=== PATIENT | male | born 1960 | race Caucasian/White ===

== ENCOUNTER 2017-11-09 10:48 | Inpatient (IN) | payer SELFPAY ==
[~2017-11-09] VITALS: Ht 180.3 cm; Wt 79.2 kg
[2017-11-09] MEDS ORDERED: SODIUM CHLORIDE 0.9% 1000ML 1,000 ML IV STA (11:06)
[2017-11-09 11:25] LABS: BASOPHILS # (AUTO) 0.1 (0.0-0.1); BASOPHILS % 0.5 % (0.0-1.0); EOSINOPHILS # (AUTO) 0.1 (0.0-0.4); EOSINOPHILS % 0.3 % (0.0-6.0); HEMOGLOBIN 11.9 g/dL (14.0-18.0); LYMPHOCYTES # (AUTO) 2.7 (1.0-3.2); LYMPHOCYTES % 14.8 % (18.0-39.1); MEAN CORPUSCULAR HEMOGLOBIN 27.5 pg (28-32); MONOCYTES # (AUTO) 1.1 (0.2-0.8); MONOCYTES % 6.1 % (4.4-11.3); NEUTROPHILS # (AUTO) 14.4 (2.1-6.9); NEUTROPHILS % 77.4 % (38.7-80.0); PLATELET COUNT 489 x10e3/uL (140-360); RED BLOOD COUNT 4.32 x10e6/uL (4.3-5.7); RED CELL DISTRIBUTION WIDTH 13.1 % (11.7-14.4)
[2017-11-09 11:30] LABS: CLARITY,URINE SL CLOUDY (CLEAR); COLOR,URINE YELLOW (YELLOW); LEUKOCYTE ESTERASE ,URINE NEGATIVE (NEGATIVE); NITRITE,URINE NEGATIVE (NEGATIVE); PROTEIN,URINE DIPSTICK NEGATIVE (NEGATIVE)
[2017-11-09 11:31] LABS: BILIRUBIN,URINE NEGATIVE (NEGATIVE); KETONES,URINE TRACE (NEGATIVE); URINE UROBILINOGEN 0.2 mg/dL (0.2 - 1)
--- NOTE | 2017-11-09 11:35 | Diagnostic Imaging Report ---
EXAMINATION: CHEST SINGLE (PORTABLE) INDICATION: \S\ABD PAIN COMPARISON: None FINDINGS: AP view TUBES and LINES: None. LUNGS: Lungs are well inflated. Lungs are clear. There is no evidence of pneumonia or pulmonary edema. PLEURA: No pleural effusion or pneumothorax. HEART AND MEDIASTINUM: The cardiomediastinal silhouette is unremarkable. BONES AND SOFT TISSUES: No acute osseous lesion. Soft tissues are unremarkable. UPPER ABDOMEN: No free air under the diaphragm. IMPRESSION: No acute thoracic abnormality. Signed by: Dr. Blaise Hernandez M.D. on 11/09/2017 11:32 AM
[2017-11-09 11:44] LABS: BACTERIA,URINE RARE /HPF
[2017-11-09] MEDS ORDERED: ALBUTEROL/IPRATROPIUM 3 ML NEB NEB ONE (11:45)
[2017-11-09 11:53] LABS: ALANINE AMINOTRANSFERASE 22 IU/L (0-55); ALBUMIN 2.7 g/dL (3.5-5.0); ALBUMIN/GLOBULIN RATIO 0.6 (0.8-2.0); ALKALINE PHOSPHATASE 100 IU/L (40-150); ANION GAP 13.9 mmol/L (8-16); BLOOD UREA NITROGEN 11 mg/dL (7-26); BUN/CREATININE RATIO 15 (6-25); CALCIUM 9.1 mg/dL (8.4-10.2); CARBON DIOXIDE 23 mmol/L (22-29); CHLORIDE 99 mmol/L (98-107); CREATINE KINASE 38 IU/L (30-200); CREATININE, SERUM 0.72 mg/dL (0.72-1.25); EST GLOMERULAR FILTRATION RATE > 60 ML/MIN (60-); GLUCOSE 105 mg/dL (74-118); LIPASE 25 U/L (8-78); POTASSIUM 3.9 mmol/L (3.5-5.1); SODIUM 132 mmol/L (136-145)
[2017-11-09] MEDS ORDERED: MORPHINE SULFATE 2 MG/ML SYR IV STA (12:48)
--- NOTE | 2017-11-09 13:11 | Diagnostic Imaging Report ---
EXAM: CT Abdomen and Pelvis WITH contrast INDICATION: \S\acute abd pain. Flank pain. Diarrhea. 3-4 weeks off and on. COMPARISON: None. TECHNIQUE: Abdomen and pelvis were scanned utilizing a multidetector helical scanner from the lung base to the pubic symphysis after administration of IV contrast. Coronal and sagittal reformations were obtained. Routine protocol was performed. Scan was performed when during portal venous phase. IV CONTRAST: 100 mL of Isovue 370 ORAL CONTRAST: Water COMPLICATIONS: None RADIATION DOSE: Total DLP: 6. Fevers and chills. mGy*cm Estimated effective dose: (DLP x 0.015 x size factor) mSv CTDIvol has been reviewed. It is below the limits set by the Radiation Protocol Committee (RPC). FINDINGS: LINES and TUBES: None. LOWER THORAX: Unremarkable HEPATOBILIARY: No focal hepatic lesions. No biliary ductal dilation. GALLBLADDER: No radio-opaque stones or sludge. No wall thickening. SPLEEN: No splenomegaly. PANCREAS: No focal masses or ductal dilatation. ADRENALS: No adrenal nodules KIDNEYS/URETERS: Kidneys enhance symmetrically. No hydronephrosis. No cystic or solid mass lesions. No stones. GI TRACT: No abnormal distention, wall thickening, or evidence of bowel obstruction. Fluid filling the ascending colon and the hepatic flexure of the colon. Descending colon and transverse colon and sigmoid colon are relatively decompressed without wall thickening. Appendix is normal. Small sliding hiatal hernia with significant diffuse wall thickening questionable intraluminal mass.. PELVIC ORGANS/BLADDER: Unremarkable. LYMPH NODES: No lymphadenopathy. VESSELS: Unremarkable. PERITONEUM / RETROPERITONEUM: No free air or fluid. BONES: Unremarkable. SOFT TISSUES: Unremarkable. IMPRESSION: 1. Small sliding hiatal hernia with significant wall thickening. Questionable intraluminal mass Recommend endoscopy. 2. Fluid-filled ascending colon and hepatic flexure of the colon. This is nonspecific but can be seen with diarrhea. Remaining colon is decompressed with no evidence of inflammation. Signed by: Dr. Blaise Hernandez M.D. on 11/09/2017 1:07 PM
[2017-11-09] MEDS ORDERED: SODIUM CHLORIDE 0.9% 50ML 50 ML ONE (14:18)
[2017-11-09] MEDS ORDERED: IOPAMIDOL 370 MG/ML 200 ML INFUS..BTL INJ ONE (14:19)
[2017-11-09] MEDS ORDERED: PIPER-TAZ 3.375 GM 50 ML IV STA (14:31)
[2017-11-09] MEDS ORDERED: ONDANSETRON HCL INJ 2 MG/ML VIAL IV PRN (14:45)
[2017-11-09] MEDS: MORPHINE SULFATE 2 MG/ML SYR IV PRN ×2 (15:08→19:30)
--- OUTSIDE RECORDS SUMMARY | 2017-11-09 15:21 | XMS REPORT ---
Author Author [facility] Address Unknown Phone Unavailable Care Team Providers Care Vice President Client Services Name Role Phone MARI HARMON Unavailable Unavailable Problems This patient has no known problems. Allergies, Adverse Reactions, Alerts This patient has no known allergies or adverse reactions. Medications This patient has no known medications. Results Test Description Test Time Test Comments Text Results Atomic Results Result Comments CHEST SINGLE (PORTABLE) [place] [address] Patient Name: VERONICA ARCEO MR #: [id number] : 1960 Age/Sex: 56/M Req #: [id number] Adm Physician: Ordered by: SHELLY LOPEZ INSTRUCTIONAL SERVICES SPECIALIST Report #: [id number] Location: ER Room/Bed: Procedure: [id number] DX/CHEST SINGLE (PORTABLE) Exam Date: 11/09/17 Exam Time: 1120 REPORT STATUS: Signed EXAMINATION: CHEST SINGLE (PORTABLE) INDICATION: S ABD PAIN COMPARISON: None FINDINGS: AP view TUBES and LINES: None. LUNGS: Lungs are well inflated. Lungs are clear. There is no evidence of pneumonia or pulmonary edema. PLEURA: No pleural effusion or pneumothorax. HEART AND MEDIASTINUM: The cardiomediastinal silhouette is unremarkable. BONES AND SOFT TISSUES: No acute osseous lesion. Soft tissues are unremarkable. UPPER ABDOMEN: No free air under the diaphragm. IMPRESSION: No acute thoracic abnormality. Signed by: Dr. Alexander Hernandez M.D. on 11/09/2017 11:32 AM Dictated By: ALEXANDER HERNANDEZ MD [id number] Transcribed By: MICHAEL on 11/09/17 113 COPY TO: SHELLY LOPEZ NP CT ABDOMEN/PELVIS W [place] [address] Patient Name: VERONICA ARCEO MR #: [id number] : 1960 Age/Sex: 56/M Req #: [id number] Adm Physician: Ordered by: SHELLY LOPEZ NP Report #: [id number] Location: ER Room/Bed: Procedure: [id number] CT/CT ABDOMEN/PELVIS W Exam Date: 11/09/17 Exam Time: 1233 REPORT STATUS: Signed EXAM: CT Abdomen and Pelvis WITH contrast INDICATION: S acute abd pain. Flank pain. Diarrhea. 3-4 weeks off and on. COMPARISON: None. TECHNIQUE: Abdomen and pelvis were scanned utilizing a multidetector helical scanner from the lung base to the pubic symphysis after administration of IV contrast. Coronal and sagittal reformations were obtained. Routine protocol was performed. Scan was performed when during portal venous phase. IV CONTRAST: 100 mL of Isovue 370 ORAL CONTRAST: Water COMPLICATIONS: None RADIATION DOSE: Total DLP: 6. Fevers and chills. mGy*cm Estimated effective dose: (DLP x 0.015 x size factor) mSv CTDIvol has been reviewed. It is below the limits set by the Radiation Protocol Committee (RPC). FINDINGS: LINES and TUBES: None. LOWER THORAX: Unremarkable HEPATOBILIARY: No focal hepatic lesions. No biliary ductal dilation. GALLBLADDER: No radio-opaque stones or sludge. No wall thickening. SPLEEN: No splenomegaly. PANCREAS: No focal masses or ductal dilatation. ADRENALS: No adrenal nodules KIDNEYS/URETERS : Kidneys enhance symmetrically. No hydronephrosis. No cystic or solid mass lesions. No stones. GI TRACT: No abnormal distention, wall thickening, or evidence of bowel obstruction. Fluid filling the ascending colon and the hepatic flexure of the colon. Descending colon and transverse colon and sigmoid colon are relatively decompressed without wall thickening. Appendix is normal. Small sliding hiatal hernia with significant diffuse wall thickening questionable intraluminal mass.. PELVIC ORGANS/BLADDER: Unremarkable. LYMPH NODES: No lymphadenopathy. VESSELS: Unremarkable. PERITONEUM / RETROPERITONEUM: No free air or fluid. BONES: Unremarkable. SOFT TISSUES: Unremarkable. IMPRESSION: 1. Small sliding hiatal hernia with significant wall thickening. Questionable intraluminal mass Recommend endoscopy. 2. Fluid-filled ascending colon and hepatic flexure of the colon. This is nonspecific but can be seen with diarrhea. Remaining colon is decompressed with no evidence of inflammation. Signed by: Dr. Alexander Hernandez M.D. on 11/09/2017 1:07 PM Dictated By: ALEXANDER HERNANDEZ MD 1300 Transcribed By: MICHAEL on 11/09/17 130 COPY TO: SHELLY LOPEZ NP
[2017-11-09 17:00] VITALS: BP 138/94
[2017-11-09 17:33] VITALS: BP 138/94
[2017-11-09 20:00] VITALS: BP 115/79
[2017-11-09 20:38] VITALS: BP 115/79
[2017-11-10] VITALS (8 sets, daily range): BP systolic 111–125; BP diastolic 65–77
[2017-11-10] MEDS: MORPHINE SULFATE 2 MG/ML SYR IV PRN ×6 (00:30→22:00)
[2017-11-10] MEDS ORDERED: PANTOPRAZOLE 40 MG 10ML VIAL IV STA (01:56)
[2017-11-10] MEDS ORDERED: PANTOPRAZOLE INJ 40 MG in SODIUM CHLORIDE 0.9% 50ML 50 ML IV SCH (02:00)
[2017-11-10] MEDS ORDERED: SODIUM CHLORIDE 0.9% 250ML 250 ML ONE (06:17)
[2017-11-10 06:27] LABS: BASOPHILS # (AUTO) 0.1 (0.0-0.1); BASOPHILS % 0.4 % (0.0-1.0); EOSINOPHILS # (AUTO) 0.2 (0.0-0.4); HEMATOCRIT 34.5 % (38.2-49.6); HEMOGLOBIN 11.8 g/dL (14.0-18.0); LYMPHOCYTES # (AUTO) 3.2 (1.0-3.2); MEAN CORPUSCULAR HEMOGLOBIN 27.8 pg (28-32); MEAN CORPUSCULAR HGB CONC 34.2 g/dL (31-35); MEAN CORPUSCULAR VOLUME 81.2 fL (81-99); MONOCYTES # (AUTO) 1.5 (0.2-0.8); MONOCYTES % 8.1 % (4.4-11.3); NEUTROPHILS % 71.9 % (38.7-80.0); PLATELET COUNT 455 x10e3/uL (140-360); RED BLOOD COUNT 4.25 x10e6/uL (4.3-5.7); RED CELL DISTRIBUTION WIDTH 13.2 % (11.7-14.4)
[2017-11-10] MEDS: METRONIDAZOLE 500MG/NS 100ML 100 ML IV SCH ×3 (06:31→18:00)
[2017-11-10 07:03] LABS: ALANINE AMINOTRANSFERASE 17 IU/L (0-55); ALBUMIN 2.4 g/dL (3.5-5.0); ALBUMIN/GLOBULIN RATIO 0.5 (0.8-2.0); ALKALINE PHOSPHATASE 90 IU/L (40-150); ANION GAP 13.1 mmol/L (8-16); BLOOD UREA NITROGEN 9 mg/dL (7-26); BUN/CREATININE RATIO 11 (6-25); CALCIUM 9.4 mg/dL (8.4-10.2); CARBON DIOXIDE 27 mmol/L (22-29); CHLORIDE 98 mmol/L (98-107); CREATININE, SERUM 0.82 mg/dL (0.72-1.25); EST GLOMERULAR FILTRATION RATE > 60 ML/MIN (60-); GLUCOSE 113 mg/dL (74-118); POTASSIUM 4.1 mmol/L (3.5-5.1); SODIUM 134 mmol/L (136-145)
[2017-11-10] MEDS: LEVOFLOXACIN 500MG/D5W 100ML 100 ML IV SCH (08:00)
[2017-11-10] MEDS: PANTOPRAZOL 40MG/SOD CHL 0.9% 50 ML IV SCH ×4 (08:15→22:00)
[2017-11-10] MEDS: PROMETHAZINE 12.5MG/ NACL 0.9% 12.5 MG/50 ML BAG IV PRN (08:57)
--- NOTE | 2017-11-10 10:39 | History and Physical ---
A 56-year-old male comes in with abdominal pain, fever, chills, and also back pain. HISTORY OF PRESENT ILLNESS: This is Mr. Seo with no prior medical history, who was in his usual state of health until 2 weeks prior to admission. The patient started having some chills, some burping and foul-smelling breath for the last 2 weeks. Came into the emergency room because of chills and also abdominal pain that was intractable, and was admitted for leukocytosis, abdominal pain and questionable gastritis on CT scan. PAST MEDICAL HISTORY: Noncontributory. SURGICAL HISTORY: More orthopedic. Nothing contributory. SOCIAL HISTORY: No ETOH. No IV drug abuse. Occasional drinking. Otherwise, no drug abuse. REVIEW OF SYSTEMS: Negative for chest pain. Positive for some abdominal pain. Positive for nausea. No vomiting. No diarrhea. No constipation. No rectal bleeding. Positive for burping. No hematochezia. No hematemesis either. FAMILY HISTORY: Noncontributory. MEDICATIONS: He takes at home are none. PHYSICAL EXAMINATION GENERAL: The patient is alert and oriented times 3 and somewhat in pain. VITAL SIGNS: Temperature is 96.4, blood pressure 111/65. HEENT: Normocephalic and atraumatic. Pupils reactive to light and accommodation. CV: S1 and S2 normal. Regular rate and rhythm. ABDOMEN: Tender in the epigastrium. Bowel sounds are positive. EXTREMITIES: No clubbing. No cyanosis. No edema. LABORATORY VALUES: White count is 18.5 and came down to 18,000. Platelet count is 489,000 and 455,000. Hemoglobin of 11.9. Chemistry: Sodium 132. Lipase was 26. Troponins were negative. EGFR is above 60. Urine was normal. Serology type A and type B negative for influenza. IMAGING STUDIES: CT scan shows a small hiatal hernia with significant wall thickening. Questionable intraluminal mass. Recommend endoscopy. It shows fluid-filled ascending colon and hepatic flexure in the colon. Nonspecific findings. ASSESSMENT 1. Leukocytosis. 2. Abdominal pain. 3. Computerized tomography finding of hiatal hernia with wall thickening. PLAN: Consult GI. Need endoscopy. Will keep him on Levaquin and Flagyl. Check a CBC and CMP on a daily basis. Further recommendations per clinical course. Will continue monitoring the patient. Job#: [id number] RI
[2017-11-11 00:27] VITALS: BP 103/63
[2017-11-11] MEDS: PANTOPRAZOL 40MG/SOD CHL 0.9% 50 ML IV SCH ×4 (02:45→21:02)
[2017-11-11] MEDS: MORPHINE SULFATE 2 MG/ML SYR IV PRN ×5 (02:45→20:50)
[2017-11-11 04:10] VITALS: BP 92/60
[2017-11-11] MEDS: METRONIDAZOLE 500MG/NS 100ML 100 ML IV SCH ×4 (06:31→17:34)
[2017-11-11 06:44] LABS: BASOPHILS # (AUTO) 0.1 (0.0-0.1); BASOPHILS % 0.4 % (0.0-1.0); EOSINOPHILS # (AUTO) 0.2 (0.0-0.4); EOSINOPHILS % 1.6 % (0.0-6.0); HEMOGLOBIN 11.7 g/dL (14.0-18.0); LYMPHOCYTES # (AUTO) 3.1 (1.0-3.2); LYMPHOCYTES % 21.1 % (18.0-39.1); MEAN CORPUSCULAR HEMOGLOBIN 27.5 pg (28-32); MEAN CORPUSCULAR HGB CONC 33.4 g/dL (31-35); MEAN CORPUSCULAR VOLUME 82.4 fL (81-99); MONOCYTES # (AUTO) 1.4 (0.2-0.8); MONOCYTES % 9.1 % (4.4-11.3); NEUTROPHILS # (AUTO) 9.9 (2.1-6.9); NEUTROPHILS % 66.9 % (38.7-80.0); PLATELET COUNT 445 x10e3/uL (140-360); RED BLOOD COUNT 4.25 x10e6/uL (4.3-5.7); RED CELL DISTRIBUTION WIDTH 13.2 % (11.7-14.4)
[2017-11-11 08:00] VITALS: BP 97/73
[2017-11-11] MEDS: LEVOFLOXACIN 500MG/D5W 100ML 100 ML IV SCH (08:46)
[2017-11-11] MEDS ORDERED: SOD POLYSTYRENE SULFONATE SUSP 15 GM/60 ML BTL PO ONE (10:30)
[2017-11-11 12:00] VITALS: BP 106/74
[2017-11-11] MEDS: PROMETHAZINE 12.5MG/ NACL 0.9% 12.5 MG/50 ML BAG IV PRN ×2 (13:07→20:49)
[2017-11-11 16:00] VITALS: BP 105/78
--- NOTE | 2017-11-11 16:12 | Operative Report ---
DATE OF PROCEDURE: November 11, 2017 REFERRING PHYSICIAN: Dr. Wilbur Bella. PROCEDURE PERFORMED: Esophagogastroduodenoscopy with biopsies. INDICATIONS FOR ESOPHAGOGASTRODUODENOSCOPY: Acid reflux, abnormal CT scan. MEDICATION: Patient was done under MAC. Please see anesthesiologist's note. PROCEDURE: With the patient in the left lateral decubitus position, the flexible fiberoptic Olympus gastroscope was introduced into the esophagus under direct visualization without any difficulty. Squamocolumnar junction was noted at approximately 30 cm from the incisors, and a 2 to 3 quarter circumferential mass was noted just below the squamocolumnar junction all the way to the GE junction. Biopsies were obtained for both frozen section and permanent section. The scope was then advanced with ease into the stomach, traversing a small hiatal hernia. Mucosa overlying the antrum and the body revealed some patchy erythema and low-grade edema. A single erosion was noted in the antrum. Biopsies were obtained and sent to stain for H. pylori. The pylorus was of normal contour and shape, was intubated with ease, and the scope was advanced all the way to the 2nd portion of the duodenum. The scope was then withdrawn slowly. Mucosa overlying the proximal 2nd portion and the duodenal bulb appeared to be within normal limits. The scope was then withdrawn back into the stomach and retroflexed, and the mucosa overlying the fundus and the cardia appeared to be within normal limits. The scope was then straightened out. The stomach was decompressed. The scope was subsequently withdrawn. Patient tolerated the procedure well. IMPRESSION: 1. 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 Biopsies were obtained for both frozen and permanent sections. 2. Hiatal hernia. 3. Gastritis biopsied. Biopsies sent to stain for H. pylori. PLAN: Follow up histology. Continue current therapy. Patient will need a CT of the chest, attention esophagus. Job#: [id number] EV cc:WILBUR BELLA MD
[2017-11-11] MEDS ORDERED: SODIUM CHLORIDE 0.9% 50ML 50 ML ONE ×2 (16:45→17:34)
[2017-11-11] MEDS ORDERED: IOPAMIDOL 370 MG/ML 200 ML INFUS..BTL INJ ONE ×2 (16:45→17:35)
--- NOTE | 2017-11-11 18:05 | Diagnostic Imaging Report ---
EXAM: CT Chest WITH contrast 11/11/2017 3:44 PM INDICATION: \S\mass in esophagus \S\[id number] \S\1653 \S\Y COMPARISON: CT abdomen/pelvis dated 11/09/2017 TECHNIQUE: Chest was scanned utilizing a multidetector helical scanner from the lung apex through the level of the adrenal glands without administration of IV contrast. Coronal and sagittal reformations were obtained. Routine protocol was performed. IV CONTRAST: 100 mL of Isovue-370 COMPLICATIONS: None RADIATION DOSE: Total DLP: 573.04 mGy*cm Estimated effective dose: (DLP x 0.014 x size factor) mSv CTDIvol has been reviewed. It is below the limits set by the Radiation Protocol Committee (RPC). FINDINGS: LINES/ TUBES: None. LUNGS AND AIRWAYS: Motion artifact limits evaluation. No lung mass or suspicious nodule. Subpleural left lower lobe calcified granuloma (series 3, image 65). Airways are normal. PLEURA: No pneumothorax. Possible trace right pleural effusion (series 2, image 115). HEART AND MEDIASTINUM: The thyroid gland is normal. No mediastinal, hilar or axillary lymphadenopathy. Nonspecific scattered mediastinal lymph nodes, the largest in the subcarinal region measuring 1.1 cm (series 2, image 69). The heart is normal in size.. Small amount of pericardial fluid. 8.7 cm length of mid to distal esophagus, demonstrating marked irregular wall thickening (series 41, image 73). 0.7 cm lymph node abutting the left superior margin of the mass (series 2, image 68). UPPER ABDOMEN: 0.8 cm and 0.9 cm gastrohepatic lymph nodes (series 2, image 117 and 121), otherwise unremarkable. BONES: Old fracture deformity of the anterior left 7th rib (series 2, image 108). SOFT TISSUES: Unremarkable. IMPRESSION: 1. Irregular wall thickening of the 8.7 cm length of the mid to distal esophagus, representing malignancy. A 1.1 cm subcarinal and a 0.7 cm left paraesophageal lymph nodes are in close proximity to the superior margin of the mass. There are additional indeterminate subcentimeter mediastinal lymph nodes. Recommend attention on follow-up examination. Otherwise, no evidence of metastatic disease in chest. 2. Possible new trace right pleural effusion. 3. Small amount of anterior pericardial fluid, increased from prior exam. Signed by: Dr. Antoine Escobar MD on 11/11/2017 6:01 PM
[2017-11-11] MEDS ORDERED: MIDAZOLAM HCL 2 MG/2 ML VIAL ONE (19:44)
[2017-11-11] MEDS ORDERED: FENTANYL CITRATE/PF 100MCG/2 ML INJ ONE (19:44)
[2017-11-11] MEDS ORDERED: GLUCAGON FOR INJ 1 MG VIAL ONE (19:47)
[2017-11-11] MEDS ORDERED: LIDOCAINE HCL 2% LOCAL INJ 5 ML SDV VIAL INJ ONE (19:47)
[2017-11-11 20:00] VITALS: BP 119/70
[2017-11-12] VITALS (7 sets, daily range): BP systolic 96–122; BP diastolic 62–77
[2017-11-12] MEDS: METRONIDAZOLE 500MG/NS 100ML 100 ML IV SCH ×4 (00:25→18:00)
[2017-11-12] MEDS: PANTOPRAZOL 40MG/SOD CHL 0.9% 50 ML IV SCH ×5 (02:07→21:40)
[2017-11-12] MEDS: MORPHINE SULFATE 2 MG/ML SYR IV PRN ×2 (02:23→18:39)
[2017-11-12] MEDS: PROMETHAZINE 12.5MG/ NACL 0.9% 12.5 MG/50 ML BAG IV PRN ×2 (02:23→18:12)
[2017-11-12] MEDS: LEVOFLOXACIN 500MG/D5W 100ML 100 ML IV SCH (08:00)
[2017-11-12] MEDS ORDERED: MORPHINE SULFATE 4 MG/ML SYR IV PRN (18:00)
[2017-11-13] MEDS: METRONIDAZOLE 500MG/NS 100ML 100 ML IV SCH ×4 (00:40→18:00)
[2017-11-13] MEDS: PANTOPRAZOL 40MG/SOD CHL 0.9% 50 ML IV SCH ×4 (01:22→16:10)
[2017-11-13 04:00] VITALS: BP_SYST 119
[2017-11-13] MEDS ORDERED: SODIUM CHLORIDE 0.9% 250ML 250 ML ONE (05:59)
[2017-11-13] MEDS: MORPHINE SULFATE 2 MG/ML SYR IV PRN ×3 (06:12→16:10)
[2017-11-13] MEDS: PROMETHAZINE 12.5MG/ NACL 0.9% 12.5 MG/50 ML BAG IV PRN ×2 (06:13→16:10)
[2017-11-13 06:35] LABS: BASOPHILS # (AUTO) 0.1 (0.0-0.1); BASOPHILS % 0.5 % (0.0-1.0); EOSINOPHILS # (AUTO) 0.2 (0.0-0.4); EOSINOPHILS % 1.4 % (0.0-6.0); HEMATOCRIT 34.8 % (38.2-49.6); HEMOGLOBIN 11.4 g/dL (14.0-18.0); LYMPHOCYTES # (AUTO) 2.1 (1.0-3.2); LYMPHOCYTES % 16.9 % (18.0-39.1); MEAN CORPUSCULAR HEMOGLOBIN 27.1 pg (28-32); MEAN CORPUSCULAR HGB CONC 32.8 g/dL (31-35); MEAN CORPUSCULAR VOLUME 82.7 fL (81-99); MONOCYTES % 8.3 % (4.4-11.3); NEUTROPHILS % 71.7 % (38.7-80.0); PLATELET COUNT 458 x10e3/uL (140-360); RED BLOOD COUNT 4.21 x10e6/uL (4.3-5.7); RED CELL DISTRIBUTION WIDTH 13.3 % (11.7-14.4)
[2017-11-13 07:51] VITALS: BP 114/83
[2017-11-13] MEDS: LEVOFLOXACIN 500MG/D5W 100ML 100 ML IV SCH (08:25)
[2017-11-13 11:24] VITALS: BP 114/83
[2017-11-13 12:00] VITALS: BP 103/66
[2017-11-13 16:00] VITALS: BP 97/52
--- NOTE | 2017-12-23 21:07 | Discharge Summary ---
The patient is a 56-year-old with no significant past medical history. He comes in with epigastric pain. A GI consult was done and CT scan showed abnormal esophageal pattern. EGD was scheduled and performed by Dr. Jamey Peralta. The patient also had leukocytosis. We continued him on antibiotics, namely Levaquin and Flagyl. EGD showed a mass, most probably adenocarcinoma. No consults were done. The patient decided to go as an outpatient to get this taken care of. The patient had a large esophageal mass. Pathology was sent and will be given to the patient as an outpatient. FINAL DIAGNOSES 1. Esophageal mass, possibly adenocarcinoma. 2. Acid reflux on proton pump inhibitor treatment. 3. Leukocytosis. The patient is discharged on antibiotics of Cipro and Flagyl. The patient was again given emphasis for the patient to follow up as an outpatient for the esophageal mass. Further recommendations on an outpatient basis. Again, the patient was asked to follow up with Marco Mcknight to take care of the mass. For further information, look in the chart. DISCHARGE MEDICATIONS: Proton pump inhibitor, Cipro and Flagyl. WILBUR BELLA MD Job#: [id number]
== END 2017-11-13 19:12 | disposition home or self-care (01) | DRG 376 ==
LOC: ER 10:48 → ERHOLD 15:17 → MED/SURG2 15:43
PROVIDERS: ADMIT Family Medicine; ATTEND Family Medicine
PROC: 0DB68ZX Excision of Stomach, Via Natural or Artificial Opening Endoscopic, Diagnostic (ICD-10-PCS; 2017-11-11)
PROC: 0DB38ZX Excision of Lower Esophagus, Via Natural or Artificial Opening Endoscopic, Diagnostic (ICD-10-PCS; principal; 2017-11-11 15:11)
DX: C15.9 Malignant neoplasm of esophagus, unspecified (principal); K31.89 Other diseases of stomach and duodenum; K22.9 Disease of esophagus, unspecified; E11.9 Type 2 diabetes mellitus without complications; D72.829 Elevated white blood cell count, unspecified; K29.70 Gastritis, unspecified, without bleeding; K44.9 Diaphragmatic hernia without obstruction or gangrene; K22.70 Barrett's esophagus without dysplasia; M79.1 Myalgia
CPT/HCPCS: 36415; 43239; 71045; 71260; 74177; 80053; 81001; 82550; 82553; 83605; 83690; 84484; 85025; 87040; 87400; 88305; 88312; 88331; 88342; 93005; 94640; 99284; J1610; J1956; J2001; J2250; J2270; J2543; J2550; J7030; J7050; Q9967